=== PATIENT | female | born 1950 | race Two or more races ===

== ENCOUNTER → 2020-08-31 18:18 | Outpatient (CLI) | payer MEDICARE ==
[2020-08-31 18:47] LABS: BASOPHILS 0.4 % (0-2); EOSINOPHILS 6.4 % (0-7); HEMATOCRIT 36.3 % (36.0-48.0); HEMOGLOBIN 11.9 g/dL (12-16); LYMPHOCYTES 34.1 % (15-50); MCH 30.3 pg (26.0-34.0); MCHC 32.8 g/dL (31.0-37.0); MCV 92.4 fL (80.0-100.0); MEAN PLATELET VOLUME 7.9 fL (7.4-10.4); MONOCYTES 6.6 % (2-11); NEUTROPHILS 52.5 % (40-80); PLATELET COUNT 262 10x3/uL (130-400); RBC 3.93 10x6/uL (4.00-5.40); RDW 14.8 % (11.5-14.5); WBC 8.6 10x3/uL (4.8-10.8)
[2020-08-31 19:16] LABS: ALBUMIN 2.7 g/dL (3.4-5.0); ANION GAP 13.2 mmol/L (8-16); BILIRUBIN - TOTAL 0.44 mg/dL (0.2-1.3); CALCIUM 9.1 mg/dL (8.5-10.1); CHOL - HDL RATIO 2.8 ratio (2.3-4.1); CREATININE - SERUM 0.9 mg/dL (0.6-1.3); LDL-HDL RATIO 1.5 ratio (1.5-3.5); POTASSIUM - SERUM 4.2 mmol/L (3.5-5.1); PROTEIN - SERUM 6.5 g/dL (6.4-8.2)
== END | disposition home or self-care (01) ==
LOC: D.LABREF 18:18
PROVIDERS: ATTEND Family Medicine
DX: E11.69 Type 2 diabetes mellitus with other specified complication (principal); I69.354 Hemiplegia and hemiparesis following cerebral infarction affecting left non-dominant side

== ENCOUNTER → 2020-09-05 18:21 | Outpatient (CLI) | payer MEDICARE | END | disposition home or self-care (01) | LOC: D.LABREF 18:21 | PROVIDERS: ATTEND Family Medicine | DX: E11.9 Type 2 diabetes mellitus without complications (principal) ==